=== PATIENT | female | born 1980 | race Caucasian/White ===

== ENCOUNTER 2018-07-07 11:44 | Outpatient (REF) | payer MEDICAID, SELFPAY ==
--- NOTE | 2018-07-07 09:50 | PAPFT_PTH ---
PATIENT: KENZIE ROUSE LOC: [facility] U#:[id number] AGE/SX: 37/F ROOM: RE07/07/[address]: Pinky Wilburn RN : 1980 BED: DIS: 07/07/2018 SPEC #: [id number] RECD: 07/07/18 12:54 STATUS: PANKAJ REFrank #: [id number] SLY: 07/07/18 09:[address]: Pinky Wilburn DEPT: [facility] Cytology RECD BY: Josefina Matthews Tissues: 1 - CX/ENDOCX FOR PAP SMEARS Procedures: PAP THIN PREP/[facility] Screening HPV DNA PROBE Comments: [id number]
== END 2018-07-07 11:45 ==
LOC: LBN 11:44
PROVIDERS: Visit Provider Advanced Practice Midwife
DX: Z12.4 Encounter for screening for malignant neoplasm of cervix (principal); Z11.51 Encounter for screening for human papillomavirus (HPV)
CPT/HCPCS: 88142; 87624